=== PATIENT | male | born 1980 | race Caucasian/White ===

== ENCOUNTER 2024-04-25 15:53 | Emergency (ER) | payer SELFPAY ==
[2024-04-25 15:58] VITALS: BP 166/97; PULSE 73; RESP 16; TEMP 36.7; O2SAT 100
--- NOTE | 2024-04-25 16:05 | PC.NURSE ---
Pt in [place] and is available for any questions. Pt verbalized that his health information can be shared with her.
--- NOTE | 2024-04-25 16:14 | PC.NURSE ---
Patient states last night he had thoughts of wanting to kill himself by taking a bunch of pills . patient states he takes medication to depression but doesnt think they have ever worked .
--- NOTE | 2024-04-25 16:16 | ED.PSYCH ---
HPI - Psych General Chief Complaint: Psychiatric Symptoms <Alejandra Romero PA-C - Last Filed: 04/25/24 18:43> Stated Complaint: mental health crisis <CLEO Edouard Last Filed: 04/25/24 18:43> Time Seen by Provider: 04/25/24 16:08 <Alejandra Romero PA-C - Last Filed: 04/25/24 18:43> History of Present Illness HPI Narrative: 43-year-old male with a reported history of depression presents to emergency department for feeling alone and depressed. Patient states for about a week his symptoms have progressively worsened. 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 His left for work this morning and he felt alone. He is supposed to be taking Wellbutrin but is unable to tell me if he has been taking this. He denies SI or HI. Denies drug use or alcohol use. Denies prior Admission to psychiatric hospital. <Alejandra Romero PA-C - Last Filed: 04/25/24 18:43> 43-year-old male with a reported history of depression presents to emergency department for feeling alone and depressed. Patient states for about a week his symptoms have progressively worsened. 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 His left for work this morning and he felt alone. He is supposed to be taking Wellbutrin but is unable to tell me if he has been taking this. He denies SI or HI. Denies drug use or alcohol use. Denies prior Admission to psychiatric hospital. <Reyna Murillo, RUBI - Last Filed: 04/25/24 22:07> Related Data Allergies/Adverse Reactions: Allergies Allergy/AdvReac Type Severity Reaction Status Date / Time No Known Allergies Allergy Verified 04/25/24 16:47 <CLEO Edouard Last Filed: 04/25/24 18:43> Review of Systems Review of Systems: All systems reviewed & are unremarkable except as noted in HPI and below <Alejandra Romero PA-C - Last Filed: 04/25/24 18:43> [facility] Social History Social History: Social History Substance use type: does not use <Alejandra Romero PA-C - Last Filed: 04/25/24 18:43> Exam Narrative: GENERAL: Well-appearing, well-nourished, and in no acute distress. HEAD: Normocephalic, atraumatic. EYES: PERRLA and EOMI. ENT: Nares clear, no rhinorrhea or epistaxis. Mucous membranes moist. NECK: Supple. CHEST: Clear to auscultation. No respiratory distress. HEART: Regular rate and rhythm. No murmur heard. Normal peripheral pulses. EXTREMITIES: Normal range of motion. No edema. SKIN: Warm, dry, no rash. NEURO: No focal deficits. Alert and oriented x3 PSYCH: Withdrawn, depressed. Denies SI or HI. Cooperative. Flat affect. <Alejandra Romero PA-C - Last Filed: 04/25/24 18:43> Course Vital Signs Vital signs: Vital Signs Temperature 36.7 C 04/25/24 15:58 Pulse Rate 73 04/25/24 15:58 Respiratory Rate 16 04/25/24 15:58 Blood Pressure 166/97 H 04/25/24 15:58 Pulse Oximetry 100 04/25/24 15:58 Oxygen Delivery Room Air 04/25/24 15:58 Temperature 36.7 C 04/25/24 15:58 Pulse Rate 73 04/25/24 15:58 Respiratory Rate 16 04/25/24 15:58 Blood Pressure 166/97 H 04/25/24 15:58 Pulse Oximetry 100 04/25/24 15:58 Oxygen Delivery Room Air 04/25/24 15:58 <Alejandra Romero PA-C - Last Filed: 04/25/24 18:43> Vital Signs Temperature 36.7 C 04/25/24 15:58 Pulse Rate 73 04/25/24 15:58 Respiratory Rate 16 04/25/24 15:58 Blood Pressure 166/97 H 04/25/24 15:58 Pulse Oximetry 100 04/25/24 15:58 Oxygen Delivery Room Air 04/25/24 15:58 Temperature 36.7 C 04/25/24 15:58 Pulse Rate 73 04/25/24 15:58 Respiratory Rate 16 04/25/24 15:58 Blood Pressure 166/97 H 04/25/24 15:58 Pulse Oximetry 100 04/25/24 15:58 Oxygen Delivery Room Air 04/25/24 15:58 <Reyna Murillo, [employer] - Last Filed: 04/25/24 22:07> MDM - Psych MDM Narrative Medical decision making
[2024-04-25 16:40] LABS: Eosinophils Absolute Auto 0.1 K/mm3 (0-0.3); Eosinophils Percent Auto 1.2 % (0-4.4); Hemoglobin 15.7 g/dL (14.0-18.0); Immature Granulocyte Absolute 0.01 K/mm3 (0.00-0.031); Immature Granulocyte Percent A 0.1 % (0-0.5); Lymphocytes Absolute Auto 2.27 K/mm3 (0.9-3.2); Mean Corpuscular HGB Conc 33.4 g/dl (32-36); Mean Corpuscular Hemoglobin 30.7 pg (26-34); Mean Corpuscular Volume 91.8 fl (80-100); Mean Platelet Volume 10.3 fl (7.4-10.4); Monocytes Absolute Auto 0.5 K/mm3 (0.1-0.6); Monocytes Percent Auto 6.7 % (2.6-8.5); Neutrophils Absolute Auto 4.7 K/mm3 (1.3-6.7); Platelet Count Result 303 k/mm3 (150-375); Red Blood Count 5.12 M/mm3 (4.6-6.20); Red Cell Distribution Width 13.4 % (11.5-14.5); White Blood Count 7.6 K/mm3 (4.5-10.0)
[2024-04-25 16:50] LABS: Alanine Aminotransferase 35 U/L (6-50); Albumin Level 4.6 g/dL (3.5-5.1); Alkaline Phosphatase 93 U/L (38-126); Anion Gap 9 mmol/L (4-12); Aspartate Amino Transferase 30 U/L (17-59); Bilirubin,Total 0.6 mg/dL (0.2-1.3); Blood Urea Nitrogen 15 mg/dL (9-20); Calcium 9.4 mg/dL (8.4-10.2); Carbon Dioxide 27 mmol/L (22-30); Chloride 107 mmol/L (98-107); Estimated Glomerular Filt Rate > 60; Ethanol < 10 mg/dL (<10); Glucose 93 mg/dL (65-110); Potassium 3.5 mmol/L (3.4-5.0); Sodium 143 mmol/L (137-145)
[2024-04-25] MEDS: hydrOXYzine HCL 25 MG TABLET PO (16:57)
--- NOTE | 2024-04-25 16:57 | PC.NURSE ---
Patient's presents to nurses station to state she thinks patient is having a panic attack. this RN went to check on patient and he was tearful and crying, but in no distress. provider aware and order for medication placed
[2024-04-25 17:25] LABS: SARS-CoV-2 RNA PCR Negative (Negative)
[2024-04-25 18:28] LABS: Add Urine Microscopic? YES; Appearance Urine Clear (Clear); Bacteria Urine None Seen /hpf; Bilirubin Urine Negative (Negative); Blood Urine Negative (Negative); Color Urine Dark Yellow (Yellow); Glucose Urine UA 3+ mg/dL (Negative); Ketones Urine 3+ mg/dL (Negative); Leukocyte Esterase Ur Negative LEU/UL (Negative); Need Manual Microscopic Reviewed; Nitrate Urine Negative (Negative); Non Pathogenic Casts 0-2; Protein Urine 1+ mg/dL (Negative); RBC Urine 0-2 /hpf (0-2); Specific Grav Ur > 1.045 (1.001-1.035); Squamous Epithelial Cell Urine None Seen /hpf (Few); WBC Urine 0-5 /hpf (0-3); pH Urine 6.5 (5.0-9.0)
[2024-04-25 19:34] LABS: Amphetamine Screen Urine Negative (Negative); Barbiturate Screen Urine Negative (Negative); Benzodiazepines Screen Urine Negative (Negative); Cannabinoid Screen Urine Negative (Negative); Cocaine Screen Urine Negative (Negative); Methadone Screen Urine Negative (Negative); Opiate Screen Urine Negative (Negative); Phencyclidine Screen Urine Negative (Negative)
[2024-04-25 22:13] VITALS: BP 146/80; PULSE 74; RESP 15; TEMP 36.6; O2SAT 98
== END 2024-04-25 22:13 | disposition home or self-care (01) ==
PROVIDERS: Physician Assistant; Emergency Provider Registered Nurse
DX: F32.A Depression, unspecified (principal); Z11.52 Encounter for screening for COVID-19
CPT/HCPCS: 36415; 80053; 80307; 81001; 84443; 85025; 87635; 99284; A9270

== ENCOUNTER 2025-06-04 00:55 | Day surgery (SDC) | payer BC, SELFPAY ==
[2025-05-22 13:38] VITALS: BMI 33.7
--- OUTSIDE RECORDS SUMMARY | 2025-06-04 00:58 | XMS_ITS | Clinical Summary ---
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 Medications metFORMIN XR (GLUCOPHAGE XR) 500 mg 24 hr tablet Take 2 tablets (1,000 mg total) by mouth 2 (two) times a day with meals 5 Active gabapentin (NEURONTIN) 100 mg capsule Take 1 capsule (100 mg total) by mouth 2 (two) times a day 5 Active Jardiance 25 mg tablet Take 1 tablet (25 mg total) by mouth daily 5 Active dilTIAZem SR (CARDIZEM SR) 120 mg 12 hr capsule Take 1 capsule (120 mg total) by mouth 2 (two) times a day 5 Active atorvastatin (LIPITOR) 80 mg tablet Take 1 tablet (80 mg total) by mouth daily 5 Active busPIRone (BUSPAR) 5 mg tablet Take 1 tablet (5 mg total) by mouth 3 (three) times a day 5 Active ketoconazole (NIZORAL) 2 % shampoo Apply 1 Application topically 2 (two) times a week Apply to damp skin, lather, leave on 5 minutes, and rinse Active lisinopril-hydr oCHLOROthiazide (ZESTORETIC) 20-12.5 mg per tabletIndicatio ns:hypertension Take 2 tablets by mouth daily Active aspirin 81 mg enteric coated tablet Take 1 tablet (81 mg total) by mouth daily Active Active Problems Problem Noted Date Diagnosed Date Visual disturbance 04/09/2025 Stroke-like symptoms 04/08/2025 Family history of sudden cardiac Cardiomegaly 11/23/2024 Other chest pain 11/23/2024 Encounters Date Type Department Care Team Description 05/14/2025 Telephone [facility] Medicine Ophthalmology [facility] [id number] Igor Decker, OD New pt scheduled 04/08/2025 6:46 PM CDT - 04/09/2025 2:09 [place] [address] Sd Montiel MD Sada, MD Demond Dalton, Bobby Chopra MD Stroke-like symptoms (Primary Dx); Visual disturbance [H53.9] Discharge Disposition: Discharge to home or self care from Last 3 Months Family History Medical History Relation Name Comments Dementia Father Stroke Maternal Grandfather Heart attack Mother Relation Name Status Comments Father Alive Maternal Grandfather Mother Social History Tobacco Use Types Packs/Day Years Used Date Smoking Tobacco: Never Smokeless Tobacco: Never Tobacco Cessation:Counseling Given: No Personal Safety Answer Date Recorded Have you ever been in or are you currently in a harmful physical or emotional relationship or is someone making you feel afraid or unsafe? Denies 04/08/2025 Sex and Gender Information Value Date Recorded Sex Assigned at Not on file Legal Sex Male 3:56 PM CDT Gender Identity Not on file Sexual Orientation Not on file Last Filed Vital Signs Vital Sign Reading Time Taken Comments Blood Pressure 138/87 04/09/2025 11:45 AM CDT Pulse 96 04/09/2025 11:45 AM CDT Temperature 36.4 C (97.5 F) 04/09/2025 11:45 AM CDT Respiratory Rate 16 04/09/2025 11:45 AM CDT Oxygen Saturation 95% 04/09/2025 11:45 AM CDT Inhaled Oxygen Concentration - - Weight 109 kg (240 lb 3.2 oz) 04/08/2025 9:34 PM CDT Height 180 cm (5' 10.87) 04/08/2025 9:34 PM CDT Body Mass Index 33.63 04/08/2025 9:34 PM CDT Plan of Treatment Health Maintenance Due Date Last Done Comments Colon Cancer Screening-Colonoscopy 1980 Depression Screening 1980 Hepatitis C Screening 1980 Varicella Vaccines (1 of 2 - 13+ 2-dose series) 09/28/1992 Hepatitis B Screening 09/28/1997 Regular Well Visit/Exam 18-64 09/28/1997 HPV Vaccines (1 - 3-dose SCDM series) 09/28/2006 Covid-19 Vaccine ( season) 2025 08/16/2024, 06/20/2023, 05/02/2022, Additional history exists Influenza Vaccine (#1) 2025 , 05/17/2023, 05/02/2022, Additional history exists DTaP/Tdap/Td Vaccine (3 - Td or Tdap) 08/04/2033 08/04/2023, 08/01/2013 Pneumococcal vaccine <65 Aged Out No longer eligible based on patient's age to complete this topic Procedures Procedure Name Priority Date/Time Associated Diagnosis Comments POCT GLUCOSE DEVICE Routine 04/09/2025 1 1:52 AM CDT US CAROTIDS DUPLEX BILATERAL IP Routine 04/09/2025 11:21 AM CDT TRANSTHORACIC ECHO (TTE) COMPLETE W DOPPLER/CF WO CONTRAST Routine 04/09/2025 10:40 AM CDT POCT GLUCOSE DEVICE Routine 04/09/2025 7 :55 AM CDT EGFR Routine 04/09/2025 5:04 AM CDT T4, FREE Routine 04/09/2025 5:04 AM CDT THYROID FUNCTION CASCADE Routine 04/09/2025 5:04 AM CDT HEMOGLOBIN A1C Routine 04/09/2025 5:04 AM CDT CBC WITHOUT DIFFERENTIAL Routine 04/09/2025 5:04 AM CDT BASIC METABOLIC PANEL Routine 04/09/2025 5:04 AM CDT LIPID PANEL Routine 04/08/2025 10:08 PM CDT POCT GLUCOSE DEVICE Routine 04/08/2025 9 :37 PM CDT MRI BRAIN WO CONTRAST ED 04/08/2025 9:10 PM CDT SEPSIS LACTATE WITH REFLEX Timed 04/08/2025 8:16 PM CDT TROPONIN T HIGH-SENSITIVITY 6-HOUR Timed 04/08/2025 8:16 PM CDT TROPONIN T HIGH-SENSITIVITY 2-HOUR Timed 04/08/2025 4:14 PM CDT CTA HEAD NECK W WO CONTRAST ED 04/08/2025 3:58 PM CDT ECG 12-LEAD STAT 04/08/2025 2:26 PM CDT URINALYSIS AND REFLEX TO MICROSCOPIC AND CULTURE STAT 04/08/2025 2:20 PM CDT EGFR STAT 04/08/2025 2:18 PM CDT DIFFERENTIAL AUTO STAT 04/08/2025 2:1 8 PM CDT MAGNESIUM STAT 04/08/2025 2:18 PM CDT APTT STAT 04/08/2025 2:18 PM CDT PROTIME-INR Routine 04/08/2025 2:18 PM CDT SEPSIS LACTATE WITH REFLEX STAT 04/08/2025 2:18 PM CDT TROPONIN T HIGH-SENSITIVITY SERIES (BASELINE, 2HR, 4HR, 6HR) STAT 04/08/2025 2:18 PM CDT COMPREHENSIVE METABOLIC PANEL STAT 04/08/2025 2:18 PM CDT CBC WITH AUTO DIFFERENTIAL STAT 04/08/2025 2:18 PM CDT from Last 3 Months Results * POCT glucose (04/09/2025 11:52 AM CDT) Glucose, POC 151 70 - 199 mg/dL Glucose comment 1 RN/MD Notified CARLOS Blood 04/09/2025 11:5 2 AM CDT 04/09/2025 11:52 AM CDT us Bobby Lagos MD LAB POCT ORDERABLES - DEVICE Final Result CARLOS [address] [facility] [place] [address] * US Carotids Duplex Bilateral (04/09/2025 11:21 AM CDT) Anatomical Region Laterality Modality Vascular Bilateral Ultrasound 04/09/2025 10:4 2 AM CDT Narrative 04/11/2025 9:35 AM CDT Carotid Duplex Ultrasound Report Patient Name: KHOI GOLDBERG : 1980 (44y 6m) Study Date: 04/09/2025 10:42:56 AM Gender: M Clinical Trial Assistant: ESPERANZA Davenport Location: [id number] Ref Provider: CASA LERNER Quality: Adequate Order Provider: CASA LERNER PROCEDURES: Carotid Report: Carotid duplex examination of the extracranial arteries was performed using 2D, color and spectral Doppler. Blood Pressure: Right: 134/79 mmHg. Left: 141/85 mmHg. INDICATIONS: Syncope and Collapse. HISTORY: HTN, HLD, and DM. COMPARISONS: No prior exams. MEASUREMENTS: Right Value Left Value RT Prox CCA PSV 132 cm/sec LT Prox CCA PSV 112 cm/sec RT Prox CCA EDV 21 cm/sec LT Prox CCA EDV 27 cm/sec RT Distal CCA PSV 111 cm/sec LT Distal CCA PSV 113 cm/sec RT Distal CCA EDV 32 cm/sec LT Distal CCA EDV 36 cm/sec RT Prox ICA PSV 110 cm/sec LT Prox ICA PSV 114 cm/sec RT Prox ICA EDV 32 cm/sec LT Prox ICA EDV 36 cm/sec RT Mid ICA PSV 78 cm/sec LT Mid ICA PSV 55 cm/sec RT Mid ICA EDV 29 cm/sec LT Mid ICA EDV 21 cm/sec RT Distal ICA PSV 84 cm/sec LT Distal ICA PSV 59 cm/sec RT Distal ICA EDV 32 cm/sec LT Distal ICA EDV 24 cm/sec RT ECA Prx PSV 93 cm/sec LT ECA Prx PSV 132 cm/sec Rt Vert PSV 62 cm/sec Lt Vert PSV 75 cm/sec FINDINGS: Rt Common Carotid Artery: Duplex imaging of the right common carotid artery is within normal limits without evidence of atherosclerotic disease. Rt Internal Carotid Artery: Duplex imaging of the right internal carotid artery is within normal limits without evidence of atherosclerotic disease. Rt External Carotid Artery: The right external carotid artery is patent without evidence of atherosclerotic plaque. Rt Vertebral Artery: The right vertebral artery is patent with antegrade flow. Lt Common Carotid Artery: Duplex imaging of the left common carotid artery is within normal limits without evidence of atherosclerotic disease. Lt Internal Carotid Artery: Duplex imaging of the left internal carotid artery is within normal limits without evidence of atherosclerotic disease. Lt External Carotid Artery: The left external carotid artery is patent without evidence of atherosclerotic plaque. Lt Vertebral Artery: The left vertebral artery is patent with antegrade flow. Comments: Multiple swollen lymph nodes visualized bilaterally. CONCLUSIONS: 1. No evidence of hemodynamically significant disease of the bilateral extracranial carotid system. 2. Normal, antegrade flow is noted in bilateral vertebral arteries. ATTESTATION: I have reviewed and interpreted the pertinent images and measurements of this study. I attest to the conclusions in the final report that is provided above. Electronically Signed By: Steve Shaffer MD 04/11/2025 8:34:39 AM CDT Procedure Note Steve Shaffer MD - 04/11/2025 Carotid Duplex Ultrasound Report Patient Name: KHOI GOLDBERG : 1980 (44y 6m) Study Date: 04/09/2025 10:42:56 AM Gender: M Clinical Trial Assistant: ESPERANZA Davenport Location: [id number] Ref Provider: CASA LERNER Quality: Adequate Order Provider: CASA LERNER PROCEDURES: Carotid Report: Carotid duplex examination of the extracranial arterieswas performed using 2D, color and spectral Doppler. Blood Pressure: Right: 134/79 mmHg. Left: 141/85 mmHg. INDICATIONS: Syncope and Collapse. HISTORY: HTN, HLD, and DM. COMPARISONS: No prior exams. MEASUREMENTS: Right Value Left Value RT Prox CCA PSV 132 cm/sec LT Prox CCA PSV 112 cm/sec RT Prox CCA EDV 21 cm/sec LT Prox CCA EDV 27 cm/sec RT Distal CCA PSV 111 cm/sec LT Distal CCA PSV 113 cm/sec RT Distal CCA EDV 32 cm/sec LT Distal CCA EDV 36 cm/sec RT Prox ICA PSV 110 cm/sec LT Prox ICA PSV 114 cm/sec RT Prox ICA EDV 32 cm/sec LT Prox ICA EDV 36 cm/sec RT Mid ICA PSV 78 cm/sec LT Mid ICA PSV 55 cm/sec RT Mid ICA EDV 29 cm/sec LT Mid ICA EDV 21 cm/sec RT Distal ICA PSV 84 cm/sec LT Distal ICA PSV 59 cm/sec RT Distal ICA EDV 32 cm/sec LT Distal ICA EDV 24 cm/sec RT ECA Prx PSV 93 cm/sec LT ECA Prx PSV 132 cm/sec Rt Vert PSV 62 cm/sec Lt Vert PSV 75 cm/sec FINDINGS: Rt Common Carotid Artery: Duplex imaging of the right common carotidartery is within normal limits without evidence of atherosclerotic disease. Rt Internal Carotid Artery: Duplex imaging of the right internal carotidartery is within normal limits without evidence of atherosclerotic disease. Rt External Carotid Artery: The right external carotid artery is patentwithout evidence of atherosclerotic plaque. Rt Vertebral Artery: The right vertebral artery is patent with antegradeflow. Lt Common Carotid Artery: Duplex imaging of the left common carotid arteryis within normal limits without evidence of atherosclerotic disease. Lt Internal Carotid Artery: Duplex imaging of the left internal carotidartery is within normal limits without evidence of atherosclerotic disease. Lt External Carotid Artery: The left external carotid artery is patentwithout evidence of atherosclerotic plaque. Lt Vertebral Artery: The left vertebral artery is patent with antegradeflow. Comments: Multiple swollen lymph nodes visualized bilaterally. CONCLUSIONS: 1. No evidence of hemodynamically significant disease of the bilateralextracranial carotid system. 2. Normal, antegrade flow is noted in bilateral vertebral arteries. ATTESTATION: I have reviewed and interpreted the pertinent images and measurements ofthis study. I attest to the conclusions in the final report that is provided above. Electronically Signed By: Steve Shaffer MD 04/11/2025 8:34:39 AM CDT Casa Lerner MD IMG US PROCEDUR ES Final Result * TRANSTHORACIC ECHO (TTE) COMPLETE W DOPPLER/CF WO CONTRAST (04/09/2025 10:40 AM CDT) Estimated EF 50-55 % CONS SCIMAGE EF Mod BP 54 % CONS SCIMAGE Anatomical Region Laterality Modality Ultrasound 04/09/2025 10:0 5 AM CDT Narrative 04/10/2025 6:22 AM CDT Transthoracic Echocardiographic Report Patient Name: KHOI GOLDBERG : 1980 (44y 6m) Sex: M Study Date: 04/09/2025 10:05:34 AM Ht(Inch): 71 Wt(Lb): 239.99 BSA: 2.34 Clinical Trial Assistant: Carolina Covington RDCS Location: [place] [id number] Order Provider: CASA LERNER Heart Rate: 84 BMI: 33.47 BP: 125 / 82 Ref Provider: CASA LERNER PROCEDURES: Echocardiographic Report: ([id number]) Transthoracic complete echo, 2D, spectral and tissue Doppler, color flow Doppler, M-mode. Additional Procedures: Agitated saline bubble study. Technically difficult study due to: Technically difficult study due to Body Habitus. INDICATIONS: Stroke and Transient ischemic attack. FINDINGS: Left Ventricle: Normal left ventricular cavity size. Normal Left ventricular wall thickness. Normal left ventricular systolic function. The Ejection Fraction (Zuniga's) is measured at 54 %. The Ejection Fraction is visually estimated to be 50-55 %. Diastolic Function E to E' ratio is 8-15 which is in the indeterminate zone and left ventricular diastolic parameters are consistent with Grade I diastolic dysfunction (normal LA pressure). Right Ventricle: Normal right ventricular size. Normal right ventricular systolic function. Left Atrium: The left atrium is normal in size. Right Atrium: The right atrium is normal in size. Atrial Septum: No shunt by color Doppler. Saline contrast study technically difficult with poor visualization of bubbles. Mitral Valve: Normal mitral valve leaflet structure. There is trace mitral valve regurgitation. No mitral valve stenosis. Aortic Valve: Aortic valve not well visualized due to poor echo windows. Difficult to detemine number of Aortic Valve leaflets. No aortic regurgitation seen. No aortic valve stenosis. The mean transaortic gradient is 4 mmHg. The aortic valve area by the continuity equation (using Peak Dat) is 2.6 cm2. Tricuspid Valve: The tricuspid valve demonstrates normal leaflet structure. There is trace tricuspid regurgitation. PASP cannot be evaluated due to lack of adequate TR jet. No tricuspid valve stenosis. Pulmonic Valve: Pulmonic Valve not well visualized due to poor echo windows. There is trace pulmonic regurgitation. No stenosis present. Pericardium: Normal pericardium without evidence of pericardial effusion. No pericardial effusion noted. Aorta: Normal aortic root. The aortic Sinus is normal in size. IVC: IVC Not well visualized due to poor echo windows. CONCLUSIONS: 1. Normal left ventricular cavity size. Normal Left ventricular wall thickness. Normal left ventricular systolic function. The Ejection Fraction (Zuniga's) is measured at 54 %. The Ejection Fraction is visually estimated to be 50-55 %. Diastolic Function E to E' ratio is 8-15 which is in the indeterminate zone and left ventricular diastolic parameters are consistent with Grade I diastolic dysfunction (normal LA pressure). 2. No shunt by color Doppler. Saline contrast study technically difficult with poor visualization of bubbles. 3. No prior echo available for comparison. MEASUREMENTS: 2D/MM Value Range Doppler Value LVIDd 2D 5.32 cm [ 3.50 - 5.70 ] AV Peak Dat 1.36 m/s LVIDs 2D 3.89 cm [ 3.10 - 4.60 ] AV Peak PG 7.40 mmHg IVSd 2D 0.96 cm [ 0.60 - 1.20 ] AV Mean PG 4.00 mmHg LVPWd 2D 0.96 cm [ 0.60 - 1.10 ] AV VTI 26.20 cm LV Thickness Ratio 1.00 LVOT Peak Dat 1.02 m/s LV Mass 2D 195.89 g LVOT Peak PG 4.16 mmHg LV Mass Index 2D 83.89 g/m2 LVOT Mean PG 2.00 mmHg RWT 0.36 LVOT VTI 17.90 cm EDV Mod BP 75.60 ml [ 62.00 - 150.00 ] LVOT Diam 2.10 cm LV EDV Index 32.37 ml/m2 SV LVOT 62.00 cm3 ESV Mod BP 34.50 ml [ 21.00 - 61.00 ] INEZ VTI 2.37 cm2 EF Mod BP 54 % [ 52 - 72 ] INEZ Vmax 2.60 cm2 Visually Estimated EF 50-55 % LVOT/AV VTI 0.68 - Dimensionless index (DVI) LA Dimension MM 3.80 cm [ 1.90 - 4.00 ] MV E Peak Dat 0.81 m/s TAPSE 2.54 cm [ 1.71 - 5.00 ] MV A Peak Dat 0.82 m/s MV E/A 1.00 ratio MV Decel Time 190.00 msec Med E` Dat 0.08 m/s Lat E` Dat 0.09 m/s Average E/E` 952.94 TV Peak Dat 0.56 m/s TV Peak PG 1.25 mmHg RV S` 13.40 cm/sec PV Peak Dat 0.88 m/s PV Peak PG 3.10 mmHg - ATTESTATION: I have reviewed and interpreted the pertinent images and measurements of this study. I attest to the conclusions in the final report that is provided above. DISCLAIMER: The study images and the final report will be retained in the patient chart by the Echo Laboratory for the legally required time period. This chart constitutes the legal record of any testing performed. Electronically Signed By: Justin Egan MD 04/10/2025 6:22:16 AM CDT Procedure Note Justin Egan MD - 04/10/2025 Transthoracic Echocardiographic Report Patient Name: KHOI GOLDBERG : 1980 (44y 6m) Sex: M Study Date: 04/09/2025 10:05:34 AM Ht(Inch): 71 Wt(Lb): 239.99 BSA: 2.34 Clinical Trial Assistant: Carolina Covington RDCS Location: [id number] Order Provider:CASA LERNER Heart Rate: 84 BMI: 33.47 BP: 125 / 82 Ref Provider:CASA LERNER PROCEDURES: Echocardiographic Report: ([id number]) Transthoracic complete echo, 2D,spectral and tissue Doppler, color flow Doppler, M-mode. Additional Procedures: Agitated saline bubble study. Technically difficult study due to: Technically difficult study due toBody Habitus. INDICATIONS: Stroke and Transient ischemic attack. FINDINGS: Left Ventricle: Normal left ventricular cavity size. Normal Leftventricular wall thickness. Normal left ventricular systolic function. The EjectionFraction (Zuniga's) is measured at 54 %. The Ejection Fraction is visually estimated to be50-55 %. Diastolic Function E to E' ratio is 8-15 which is in the indeterminate zone and leftventricular diastolic parameters are consistent with Grade I diastolic dysfunction(normal LA pressure). Right Ventricle: Normal right ventricular size. Normal right ventricularsystolic function. Left Atrium: The left atrium is normal in size. Right Atrium: The right atrium is normal in size. Atrial Septum: No shunt by color Doppler. Saline contrast studytechnically difficult with poor visualization of bubbles. Mitral Valve: Normal mitral valve leaflet structure. There is trace mitralvalve regurgitation. No mitral valve stenosis. Aortic Valve: Aortic valve not well visualized due to poor echo windows.Difficult to detemine number of Aortic Valve leaflets. No aortic regurgitation seen. Noaortic valve stenosis. The mean transaortic gradient is 4 mmHg. The aortic valve areaby the continuity equation (using Peak Dat) is 2.6 cm2. Tricuspid Valve: The tricuspid valve demonstrates normal leafletstructure. There is trace tricuspid regurgitation. PASP cannot be evaluated due to lack ofadequate TR jet. No tricuspid valve stenosis. Pulmonic Valve: Pulmonic Valve not well visualized due to poor echowindows. There is trace pulmonic regurgitation. No stenosis present. Pericardium: Normal pericardium without evidence of pericardial effusion.No pericardial effusion noted. Aorta: Normal aortic root. The aortic Sinus is normal in size. IVC: IVC Not well visualized due to poor echo windows. CONCLUSIONS: 1. Normal left ventricular cavity size. Normal Left ventricular wallthickness. Normal left ventricular systolic function. The Ejection Fraction (Zuniga's) ismeasured at 54 %. The Ejection Fraction is visually estimated to be 50-55 %. DiastolicFunction E to E' ratio is 8-15 which is in the indeterminate zone and left ventriculardiastolic parameters are consistent with Grade I diastolic dysfunction (normal LApressure). 2. No shunt by color Doppler. Saline contrast study technically difficultwith poor visualization of bubbles. 3. No prior echo available for comparison. MEASUREMENTS: 2D/MM Value Range DopplerValue LVIDd 2D 5.32 cm [ 3.50 - 5.70 ] AV Peak Vel1.36 m/s LVIDs 2D 3.89 cm [ 3.10 - 4.60 ] AV Peak PG7.40 mmHg IVSd 2D 0.96 cm [ 0.60 - 1.20 ] AV Mean PG4.00 mmHg LVPWd 2D 0.96 cm [ 0.60 - 1.10 ] AV VTI26.20 cm LV Thickness Ratio 1.00 LVOT PeakVel 1.02 m/s LV Mass 2D 195.89 g LVOT Peak PG4.16 mmHg LV Mass Index 2D 83.89 g/m2 LVOT Mean PG2.00 mmHg RWT 0.36 LVOT VTI17.90 cm EDV Mod BP 75.60 ml [ 62.00 - 150.00 ] LVOT Diam2.10 cm LV EDV Index 32.37 ml/m2 SV LVOT62.00 cm3 ESV Mod BP 34.50 ml [ 21.00 - 61.00 ] INEZ VTI2.37 cm2 EF Mod BP 54 % [ 52 - 72 ] INEZ Vmax2.60 cm2 Visually Estimated EF 50-55 % LVOT/AV VTI0.68 - Dimensionless index (DVI) LA Dimension MM 3.80 cm [ 1.90 - 4.00 ] MV E PeakVel 0.81 m/s TAPSE 2.54 cm [ 1.71 - 5.00 ] MV A PeakVel 0.82 m/s MV E/A 1.00 ratio MV Decel Time 190.00 msec Med E` Dat 0.08 m/s Lat E` Dat 0.09 m/s Average E/E` 952.94 TV Peak Dat 0.56 m/s TV Peak PG 1.25 mmHg RV S` 13.40 cm/sec PV Peak Dat 0.88 m/s PV Peak PG 3.10 mmHg - ATTESTATION: I have reviewed and interpreted the pertinent images and measurements ofthis study. I attest to the conclusions in the final report that is provided above. DISCLAIMER: The study images and the final report will be retained in the patientchart by the Echo Laboratory for the legally required time period. This chart constitutesthe legal record of any testing performed. Electronically Signed By: Justin Egan MD 04/10/2025 6:22:16 AM CDT Casa Lerner MD CV ECHO PROCEDU RES Final Result * POCT glucose (04/09/2025 7:55 AM CDT) Glucose, POC 101 70 - 199 mg/dL Glucose comment 1 RN/ Notified CARLOS Blood 04/09/2025 7:55 AM CDT 04/09/2025 7:55 AM CDT us Bobby Lagos MD LAB POCT ORDERABLES - DEVICE Final Result Performing Organization Address [facility] Co de Phone Number CARLOS [address] [place] [address] * eGFR (04/09/2025 5:04 AM CDT) eGFR 79 >=60 mL/min/1. 73 m2 Comment: Interpretive Data Reference Interval Normal >/= 90 mL/min/1.73m2 Mildly decreased* 60 - 89 mL/min/1.73m2 Mildly to moderately decreased 45 - 59 mL/min/1.73m2 Moderately to severely decreased 30 - 44 mL/min/1.73m2 Severely decreased 15 - 29 mL/min/1.73m2 Kidney Failure < 15 mL/min/1.73m2 *Relative to young adult level Estimated glomerular filtration rate is determined by the 2020 CKD-EPI equation recommended by the National Kid[employer] (A Unifying Approach to GFR Estimation: Recommendations of the NKF-ASK Task Force on Reassessing the Inclusion of Race in Diagnosing Kidney Disease, JASN 2020). The CKD-EPI equation should not be used for patients with unstable renal function and has not been validated in children and those over 70. Current interpretive data was last reviewed 2021. Blood 04/09/2025 5:04 AM CDT 04/09/2025 5:36 AM CDT us Casa Lerner MD LAB BLOOD ORDER OLENA Final Result Performing Organization Address [facility]/ZIP Co de Phone Number BRITANY[address] [place] [address] * (ABNORMAL) Thyroid Function [place] (04/09/2025 5:04 AM CDT) TSH 4.50(H) 0.30 - 4.20 mcIUnit/mL Blood 04/09/2025 5:04 AM CDT 04/09/2025 5:36 AM CDT Casa Lerner MD LAB BLOOD ORDER OLENA Final Result Performing Organization Address City/[facility] Co de Phone Number CARLOS [address] [place] [address] * (ABNORMAL) CBC without differential (04/09/2025 5:04 AM CDT) Pathologist [facility] [place] WBC 10.18(H) 3.80 - 9.90 K/cumm Hgb 14.9 13.0 - 17.5 g/dL [facility] Hct 45.1 38.9 - 50.3 % [facility] Plt 290 150 - 400 K/cumm [facility] MPV 11.1 9.1 - 12.3 fL [facility] RBC 4.85 4.30 - 5.80 M/cumm [facility] MCV 93.0 81.3 - 96.4 fL [facility] MCH 30.7 27.1 - 33.3 pg [facility] MCHC 33.0 32.3 - 35.7 g/dL [facility] RDW CV 13.0 11.1 - 14.9 % [facility] RDW SD 44.2 35.7 - 48.1 fL [facility] NRBC abs 0.00 0.00 - 0.01 K/cumm [facility] Blood 04/09/2025 5:04 AM CDT 04/09/2025 5:36 AM CDT Casa Lerner MD LAB BLOOD ORDER OLENA Final Result Performing Organization Address City/[facility]/ZIP Co de Phone Number CARLOS [address] [place] [address] * T4, free (04/09/2025 5:04 AM CDT) Pathologist [facility] [place] Free T4 1.01 0.90 - 1.70 ng/dL Blood 04/09/2025 5:04 AM CDT 04/09/2025 5:36 AM CDT Narrative [facility] - 04/09/2025 7:00 AM CDT This test was reflexed from a TSH result. Casa Lerner MD LAB BLOOD ORDER OLENA Final Result Performing Organization Address [facility] de Phone Number CARLOS [address] [address] * Hemoglobin A1c (04/09/2025 5:04 AM CDT) [facility] Hgb A1C 5.5 4.0 - 5.6 % Estimated Average Glucose 111 mg/dL [facility] Comment: The ADA recommends reporting an estimated Average Glucose (eAG) with all Hemoglobin A1c results using the equation derived from a study of 507 normal and diabetic adults. Minority populations were underrepresented and children were not included. (Diabetes Care 31:3975-7787, 2008). The eAG is not equivalent to a fasting glucose. Blood 04/09/2025 5:04 AM CDT 04/09/2025 5:36 AM CDT Casa Lerner MD LAB BLOOD ORDER OLENA Final Result Performing Organization Address [facility] de Phone Number [address] [address] * (ABNORMAL) Basic metabolic panel (04/09/2025 5:04 AM CDT) [facility] Sodium 142 135 - 145 mmol/L Potassium, pl 3.2(L) 3.3 - 4.9 mmol/L [facility] Comment:Hemolyzed; Potassium value may be falsely elevated by as much as 1.0 mmol/L. Suggest redraw and reanalysis. Chloride 106 97 - 110 mmol/L [facility] CO2 25 22 - 32 mmol/L [facility] Anion gap 11 2 - 15 mmol/L [facility] BUN 15 6 - 25 mg/dL [facility] Creatinine 1.16 0.80 - 1.30 mg/dL [facility] Glucose 101 70 - 199 mg/dL [facility] Comment: Interpretive Data Fasting glucose >/= 126 mg/dl is diagnostic for diabetes. Fasting is defined as no caloric intake for at least 8 hours. Fasting glucose between 100 mg/dl to 125 mg/dl is diagnostic of prediabetes. In a patient with classic symptoms of hyperglycemia or hyperglycemic crisis, a random glucose >/= 200 mg/dl is diagnostic for diabetes. In the absence of unequivocal hyperglycemia, results should be confirmed by repeat testing. The classification and Diagnosis of Diabetes Diabetes Care 2021; 46: S19-S40. Current interpretive data was last revised 2022. Calcium 9.2 8.5 - 10.3 mg/dL CARLOS BURCIAGA Blood 04/09/2025 5:04 AM CDT 04/09/2025 5:36 AM CDT Casa Lerner MD LAB BLOOD ORDER OLENA Final Result CARLOS BURCIAGA [address] [facility] [place] [address] * (ABNORMAL) Lipid panel (04/08/2025 10:08 PM CDT) Cholesterol 146 30 - 199 mg/dL Comment: Interpretive Data Ages < or = 19 years Acceptable: <170 mg/dL Borderline high: 170-199 mg/dL High: >or= 200 mg/dL Ages > or = 20 years Desirable: <200 mg/dL Borderline high: 200-239 mg/dL High: >or= 240 mg/dL Literature References: 1. Expert Panel on Integrated Guidelines for Cardiovascular Health and Risk Reduction in Children and Adolescents. Pediatrics 2011;128:S213 2. NCEP Expert Panel. Circulation 2004;110:227 Current Interpretive Data was last revised on 2018. Triglycerides 175(H) <=149 mg/dL CARLOS BURCIAGA Comment: Interpretive Data Ages < or = 9 years Acceptable: <75 mg/dL Borderline high: 75-99 mg/dL High: >or= 100 mg/dL Ages 10 to 20 years Acceptable: <90 mg/dL Borderline high: 90-129 mg/dL High: >or= 130 mg/dL Ages > or = 20 years Desirable: <150 mg/dL Borderline high: 150-199 mg/dL High: 200-499 mg/dL Very high: >or= 499 mg/dL Literature References: 1. Expert Panel on Integrated Guidelines for Cardiovascular Health and Risk Reduction in Children and Adolescents. Pediatrics 2011;128:S213 2. NCEP Expert Panel. Circulation 2004;110:227 Current Interpretive Data was last revised on 2018. HDL 37(L) >=40 mg/dL CARLOS Comment: Interpretive Data Ages < or = 19 years Acceptable: >45 mg/dL Borderline low: 40-45 mg/dL Low: <40 mg/dL Ages > or = 20 years Desirable: >or= 60 mg/dL Low: <40 mg/dL Literature References: 1. Expert Panel on Integrated Guidelines for Cardiovascular Health and Risk Reduction in Children and Adolescents. Pediatrics 2011;128:S213 2. NCEP Expert Panel. Circulation 2004;110:227 Current Interpretive Data was last revised on 2018. LDL, calculated 79 <=129 mg/dL CARLOS Comment: Interpretive Data Ages < or = 19 years Acceptable: <110 mg/dL Borderline high: 110-129 mg/dL High: >or= 130 mg/dL Ages > or = 20 years Optimal: <100 mg/dL Near optimal: 100-129 mg/dL Borderline high: 130-159 mg/dL High: >160 mg/dL Calculated using the Cash LDL-C estimating equation. This equation was implemented on 2024. Prior to this date LDL-C was estimated using the Friedewald equation. Literature References: 1. Expert Panel on Integrated Guidelines for Cardiovascular Health and Risk Reduction in Children and Adolescents. Pediatrics 2011;128:S213 2. NCEP Expert Panel. Circulation 2004;110:227 3. Cash Stuart al. MICHELLE Cardiol. 2019November 29;5(5):540-548. doi: [email or web address] Current Interpretive Data was last revised on 2024. Non-HDL Cholesterol 109 mg/dL CARLOS Comment: Interpretive Data Ages < or = 19 years Acceptable: <120 mg/dL Borderline high: 120-144 mg/dL High: >145 mg/dL Ages > or = 20 years When triglycerides are >200 mg/dL, Non-HDL cholesterol is a secondary target of therapy with treatment goals that are 30 mg/dL greater than the LDL cholesterol target. Literature References: 1. Expert Panel on Integrated Guidelines for Cardiovascular Health and Risk Reduction in Children and Adolescents. Pediatrics 2011;128:S213 2. NCEP Expert Panel. Circulation 2004;110:227 Current Interpretive Data was last revised on 2018. Chol/HDL ratio 4 CARLOS Blood 04/08/2025 10:0 8 PM CDT 04/08/2025 10:24 PM CDT Casa Lerner MD LAB BLOOD ORDER OLENA Final Result Performing Organization Address City/[facility] Co de Phone Number BRITANY[address] [place] [address] * POCT glucose (04/08/2025 9:37 PM CDT) Glucose, POC 123 70 - 199 mg/dL Glucose comment 1 RN/MD Notified CARLOS Blood 04/08/2025 9:37 PM CDT 04/08/2025 9:37 PM CDT Casa Lerner MD LAB POCT ORDERA BLES - DEVICE Final Result Performing Organization Address City/[facility] Co de Phone Number BRITANY[address] [place] [address] * MRI Brain WO Contrast (04/08/2025 9:10 PM CDT) Anatomical Region Laterality Modality Head and Neck N/A Magnetic Resonan ce 04/08/2025 9:26 PM CDT Narrative 04/08/2025 9:29 PM CDT EXAM DESCRIPTION: MRI BRAIN WO CONTRAST REASON FOR STUDY: Neuro deficit, acute, stroke suspected, tia Patient states that he lost vision for approximately 10 seconds this morning. Concern for stroke. TECHNIQUE: Multiplanar imaging includes non-contrasted T1, T2, FLAIR, and diffusion with ADC map sequences. Additional sequence(s) sensitive to blood products. Images stored on PACS. COMPARISON: CT a head and neck from 04/10/2025. FINDINGS: CEREBRUM: No hemorrhage, edema, or mass effect. No abnormality on blood sensitive gradient T2 weighted sequences is identified to indicate hemosiderin or other chronic blood breakdown product. WHITE MATTER: Normal. POSTERIOR FOSSA: Brainstem and cerebellum appear unremarkable. DIFFUSION IMAGING: No recent infarction. EXTRAAXIAL SPACES: No hemorrhage. No mass. BRAIN VOLUME: Within normal limits for age. PITUITARY: Unremarkable. VASCULATURE: No flow disturbance identified. ORBITS: No masses. Globes normal. PARANASAL SINUSES AND MASTOIDS: Well-aerated with no fluid levels. No mucosa thickening. OTHER: No other significant finding. IMPRESSION: No acute infarction or other acute intracranial findings. Essentially unremarkable MRI of the brain without contrast. THIS IS AN ELECTRONICALLY VERIFIED FINAL REPORT 04/08/2025 9:29 PM - Electronically signed by Beverly Jay M.D. LC T: Report ID: [id number] Reading Location: [place] [address] Procedure Note Deysi Jay MD - 04/08/2025 EXAM DESCRIPTION: MRI BRAIN WO CONTRAST REASON FOR STUDY: Neuro deficit, acute, stroke suspected, tia Patient states that he lost vision for approximately 10 seconds thismorning. Concern for stroke. TECHNIQUE: Multiplanar imaging includes non-contrasted T1, T2, FLAIR, and diffusion with ADC map sequences. Additional sequence(s) sensitive toblood products. Images stored on PACS. COMPARISON: CT a head and neck from 04/10/2025. FINDINGS: CEREBRUM: No hemorrhage, edema, or mass effect. Noabnormality on blood sensitive gradient T2 weighted sequences is identified toindicate hemosiderin or other chronic blood breakdown product. WHITE MATTER: Normal. POSTERIOR FOSSA: Brainstem and cerebellum appear unremarkable. DIFFUSION IMAGING: No recent infarction. EXTRAAXIAL SPACES: No hemorrhage. No mass. BRAIN VOLUME: Within normal limits for age. PITUITARY: Unremarkable. VASCULATURE: No flow disturbance identified. ORBITS: No masses. Globes normal. PARANASAL SINUSES AND MASTOIDS: Well-aerated with no fluid levels. [place]uc[place] thickening. OTHER: No other significant finding. IMPRESSION: No acute infarction or other acute intracranial findings. Essentially unremarkable MRI of the brain without contrast. THIS IS AN ELECTRONICALLY VERIFIED FINAL REPORT 04/08/2025 9:29 PM - Electronically signed by Beverly Jay M.D. T: Report ID: [id number] Reading Location: [id number] Sd Montiel MD IMG MRI PROCEDURES Teresa l Result * Troponin T high-sensitivity 6-hour (04/08/2025 8:16 PM CDT) Pathologist [facility] Trop T hs 7 <=22 ng/L Comment: Interpretive Data For further hscTnT resources including the diagnostic algorithm and an aid in interpretation, copy and paste this link: https://nrl.testcatalog.org/show/hsTrop Current Interpretive Data last revised 2020. Trop T hs delta -4 ng/L CARLOS Trop T hs interp Insignificant CARLOS Blood 04/08/2025 8:16 PM CDT 04/08/2025 8:18 PM CDT Elsi JARQUIN LAB BLOOD ORDERABLES Final R esult Performing Organization Address City/[facility] Co de Phone Number [address] [place] [address] * Sepsis Lactate w/ Reflex (04/08/2025 8:16 PM CDT) Pathologist [facility] Sepsis Lactate 1.3 0.7 - 2.0 mmol/L Blood 04/08/2025 8:16 PM CDT 04/08/2025 8:18 PM CDT Elsi JARQUIN LAB BLOOD ORDERABLES Final R esult Performing Organization Address City/[facility]/ZIP Co de Phone Number BRITANY[address] [place] [address] * Troponin T high-sensitivity 2-hour (04/08/2025 4:14 PM CDT) Trop T hs 10 <=22 ng/L Comment: Interpretive Data For further hscTnT resources including the diagnostic algorithm and an aid in interpretation, copy and paste this link: https://nrl.testcatalog.org/show/hsTrop Current Interpretive Data last revised 2020. Trop T hs delta -1 ng/L CARLOS BURCIAGA Trop T hs interp Insignificant CARLOS BURCIAGA Blood 04/08/2025 4:14 PM CDT 04/08/2025 4:16 PM CDT us Elsi JARQUIN LAB BLOOD ORDERABLES Final R esult CARLOS BURCIAGA [address] [facility] [place] [address] * CTA Head Neck W WO Contrast (04/08/2025 3:58 PM CDT) Anatomical Region Laterality Modality Head and Neck N/A Computed Tomogra phy 04/08/2025 4:53 PM CDT Narrative 04/08/2025 4:57 PM CDT EXAM DESCRIPTION: CTA HEAD NECK W WO CONTRAST REASON FOR STUDY: Vision loss, binocular Pt ambulatory to triage with c/o waking up at 0400 and being unable to see anything for 10 seconds. Pt saw eye doctor this morning and was cleared, pcp instructed to come to ED. No stroke, no surgery. TECHNIQUE: Axial images were first obtained through the brain without contrast. Axial dynamic scanning technique with dynamic contrast enhancement through the intracranial and extracranial carotid and vertebral arteries. Multiplanar reconstruction. All stenosis measurements are based on NASCET criteria. 3D MIP images rendered on scanning unit and reviewed at time of interpretation. Automated exposure control was used as a dose optimization technique for this examination. CONTRAST TYPE/DOSE: 100mL of IOVERSOL 350 MG IODINE/ML INTRAVENOUS SYRINGE injected via intravenous COMPARISON: None FINDINGS: BRAIN CEREBRUM: No hemorrhage, edema or mass effect. No recent infarct. Mild diffuse atrophy is noted. WHITE MATTER: Normal. POSTERIOR FOSSA: No masses. No hemorrhage. No evidence for acute infarction. EXTRA-AXIAL SPACES: No fluid collections. No masses. ORBITS: No significant abnormality. CALVARIUM: No fracture. SINUSES/MASTOIDS: No fluid or mucosal thickening. OTHER: No other significant abnormality. INTRACRANIAL VESSELS [place] STAR[place]: The anterior, middle, posterior cerebral arteries are all patent. No evidence of aneurysm or focal stenosis. POSTERIOR CIRCULATION: The distal vertebral arteries are patent as is the basilar artery. No aneurysm. BRAIN: No gross enhancing lesions as visualized. CAROTID CTA RIGHT CAROTIDS: No internal, external or common carotid stenosis. LEFT CAROTIDS: No internal, external or common carotid stenosis. LEFT VERTEBRAL: Patent. No significant stenosis. No dissection. RIGHT VERTEBRAL: Patent. No significant stenosis. No dissection. AORTIC ARCH: Normal three-vessel origin. Bilateral subclavian arteries are patent. No dissection. NECK SOFT TISSUE: No mass, adenopathy. No thyroid nodule greater than 1 cm. INCLUDED LUNGS: No acute abnormality. No worrisome nodules. OTHER: No other significant finding. IMPRESSION: BRAIN: No acute abnormalities. INTRACRANIAL CTA: Normal. CAROTID CTA: Normal CTA of the extra-cranial carotid and vertebral arteries. THIS IS AN ELECTRONICALLY VERIFIED FINAL REPORT 04/08/2025 4:57 PM - Electronically signed by Skip Roldan M.D. T: Report ID: [id number] Reading Location: [place] [address] Procedure Note Skip Roldan MD - 04/08/2025 EXAM DESCRIPTION: CTA HEAD NECK W WO CONTRAST REASON FOR STUDY: Vision loss, binocular Pt ambulatory to triage with c/o waking up at 0400 and being unable to see anything for 10 seconds. Pt saw eye doctor this morning and was cleared,pcp instructed to come to ED. No stroke, no surgery. TECHNIQUE: Axial images were first obtained through the brain without contrast. Axial dynamic scanning technique with dynamic contrast enhancement throughthe intracranial and extracranial carotid and vertebral arteries. Multiplanar reconstruction. All stenosis measurements are based on NASCET criteria. 3D MIP images rendered on scanning unit and reviewed at time of interpretation. Automated exposure control was used as a dose optimization technique forthis examination. CONTRAST TYPE/DOSE: 100mL of IOVERSOL 350 MG IODINE/ML INTRAVENOUSSYRINGE injected via intravenous COMPARISON: None FINDINGS: BRAIN CEREBRUM: No hemorrhage, edema or mass effect. No recent infarct. Mild diffuse atrophy is noted. WHITE MATTER: Normal. POSTERIOR FOSSA: No masses. No hemorrhage. No evidence for acuteinfarction. EXTRA-AXIAL SPACES: No fluid collections. No masses. ORBITS: No significant abnormality. CALVARIUM: No fracture. SINUSES/MASTOIDS: No fluid or mucosal thickening. OTHER: No other significant abnormality. INTRACRANIAL VESSELS [place] OF STARKS: The anterior, middle, posterior cerebral arteries areall patent. No evidence of aneurysm or focal stenosis. POSTERIOR CIRCULATION: The distal vertebral arteries are patent as isthe basilar artery. No aneurysm. BRAIN: No gross enhancing lesions as visualized. CAROTID CTA RIGHT CAROTIDS: No internal, external or common carotid stenosis. LEFT CAROTIDS: No internal, external or common carotid stenosis. LEFT VERTEBRAL: Patent. No significant stenosis. No dissection. RIGHT VERTEBRAL: Patent. No significant stenosis. No dissection. AORTIC ARCH: Normal three-vessel origin. Bilateral subclavian arteriesare patent. No dissection. NECK SOFT TISSUE: No mass, adenopathy. No thyroid nodule greater than 1cm. INCLUDED LUNGS: No acute abnormality. No worrisome nodules. OTHER: No other significant finding. IMPRESSION: BRAIN: No acute abnormalities. INTRACRANIAL CTA: Normal. CAROTID CTA: Normal CTA of the extra-cranial carotid and vertebral arteries. THIS IS AN ELECTRONICALLY VERIFIED FINAL REPORT 04/08/2025 4:57 PM - Electronically signed by Skip Roldan M.D. T: Report ID: [id number] Reading Location: [place] [address] PROCEDURES Final Resu lt * ECG 12 lead (04/08/2025 2:26 PM CDT) Ventricular Rate EKG/Min 92 BPM [facility] Atrial Rate 92 BPM [facility] MO-Interval (MSEC) 180 ms [facility] QRS-Interval (MSEC) 80 ms [facility] QT-Interval (MSEC) 350 ms [facility] QTc 432 ms [facility] P [place] 39 degrees [facility] R [place] -13 degrees [facility] T [place] 45 degrees [facility] Diagnosis Normal sinus rhythm Normal ECG No previous ECGs available Confirmed by TAWNYA BROOKS M.D. ([id number]) on 04/08/2025 8:35:53 PM [facility] 04/08/2025 2:26 PM CDT 04/08/2025 8:35 PM CDT Elsi JARQUIN ECG ORDERABLES Final Result Performing Organization Address [facility] de Phone Number [facility] * (ABNORMAL) Urinalysis reflex to microscopic and culture Urine (04/08/2025 2:20 PM CDT) Color, ur Yellow Yellow Clarity, ur Clear Clear [facility] Specific gravity, ur 1.013 1.003 - 1.030 [facility] pH, urine 6.5 [facility] Comment: Interpretive Data U rine pH is affected by diet, medications, systemic acid-base disturbances, and renal tubular function. pH may affect urinary stone formation. For example, urine pH below 6.0 may help reduce the tendency for calcium phosphate stones and pH greater than 6.0 may reduce the tendency for uric acid stone formation. Source: [facility] Current Interpretive Data was last revised on 2017 Protein, ur ql Negative Negative [facility] Glucose, ur ql 4+(A) Negative [facility] Ketones, ur Negative Negative [facility] Bilirubin, ur Negative Negative [facility] Blood, ur Negative Negative [facility] Urobilinogen, ur <2.0 <2.0 mg/dL [facility] Nitrite, ur Negative Negative [facility] Leukocyte esterase, ur Negative Negative [facility] UA reflex comment Reflex conditions for microscopic UA and culture not met. CARLOS Urine 04/08/2025 2:20 PM CDT 04/08/2025 2:27 PM CDT us Elsi JARQUIN LAB MICROBIOLOGY - GENERAL O RDERABLES Final Result Performing Organization Address City/[facility]/ZIP Co de Phone Number [facility] [address] [facility] [place] [address] * Troponin T high-sensitivity series (baseline, 2hr, 4hr, 6hr) (04/08/2025 2:18 PM CDT) Trop T hs 11 <=22 ng/L Comment: Interpretive Data For further hscTnT resources including the diagnostic algorithm and an aid in interpretation, copy and paste this link: https://nrl.testcatalog.org/show/hsTrop Current Interpretive Data last revised 2020. Blood 04/08/2025 2:18 PM CDT 04/08/2025 2:27 PM CDT us Elsi JARQUIN LAB BLOOD ORDERABLES Final R esult Performing Organization Address [facility] Co de Phone Number BRITANY[address] [place], [place] [id number] * (ABNORMAL) Sepsis Lactate w/ Reflex (04/08/2025 2:18 PM CDT) Pathologist [facility] Sepsis Lactate 2.2(H) 0.7 - 2.0 mmol/L Blood 04/08/2025 2:18 PM CDT 04/08/2025 2:27 PM CDT Elsi JARQUIN LAB BLOOD ORDERABLES Final R esult Performing Organization Address [facility] Co de Phone Number BRIT[address] [address] * eGFR (04/08/2025 2:18 PM CDT) Pathologist [facility] eGFR 82 >=60 mL/min/1. 73 m2 Comment: Interpretive Data Reference Interval Normal >/= 90 mL/min/1.73m2 Mildly decreased* 60 - 89 mL/min/1.73m2 Mildly to moderately decreased 45 - 59 mL/min/1.73m2 Moderately to severely decreased 30 - 44 mL/min/1.73m2 Severely decreased 15 - 29 mL/min/1.73m2 Kidney Failure < 15 mL/min/1.73m2 *Relative to young adult level Estimated glomerular filtration rate is determined by the 2020 CKD-EPI equation recommended by the National Kidney Foundation (A Unifying Approach to GFR Estimation: Recommendations of the NKF-ASK Task Force on Reassessing the Inclusion of Race in Diagnosing Kidney Disease, JASN 2020). The CKD-EPI equation should not be used for patients with unstable renal function and has not been validated in children and those over 70. Current interpretive data was last reviewed 2021. Blood 04/08/2025 2:18 PM CDT 04/08/2025 2:27 PM CDT Elsi JARQUIN LAB BLOOD ORDERABLES Final R esult [facility] [address] [facility] Department of Laboratories [place], [place] [id number] * Differential, auto (04/08/2025 2:18 PM CDT) Pathologist [facility] Neutrophil abs 5.32 1.50 - 6.50 K/cumm Imm gran abs 0.02 0.00 - 0.10 K/cumm [facility] Lymphocyte abs 2.68 0.80 - 3.30 K/cumm [facility] Monocyte abs 0.60 0.20 - 0.80 K/cumm [facility] Eosinophil abs 0.14 0.00 - 0.50 K/cumm [facility] Basophil abs 0.05 0.00 - 0.10 K/cumm [facility] Neutrophil pct 60.4 % [facility] Comment: Interpretive Data Percent cell count reference ranges are not reported, since discordance with absolute values may lead to misinterpretation of CBC data. Current Interpretive Data was last revised on 2017. Imm gran pct 0.2 % [facility] Comment: Interpretive Data Percent cell count reference ranges are not reported, since discordance with absolute values may lead to misinterpretation of CBC data. Current Interpretive Data was last revised on 2017. Lymphocyte pct 30.4 % [facility] Comment: Interpretive Data Percent cell count reference ranges are not reported, since discordance with absolute values may lead to misinterpretation of CBC data. Current Interpretive Data was last revised on 2017. Monocyte pct 6.8 % [facility] Comment: Interpretive Data Percent cell count reference ranges are not reported, since discordance with absolute values may lead to misinterpretation of CBC data. Current Interpretive Data was last revised on 2017. Eosinophil pct 1.6 % [facility] Comment: Interpretive Data Percent cell count reference ranges are not reported, since discordance with absolute values may lead to misinterpretation of CBC data. Current Interpretive Data was last revised on 2017. Basophil pct 0.6 % [facility] Comment: Interpretive Data Percent cell count reference ranges are not reported, since discordance with absolute values may lead to misinterpretation of CBC data. Current Interpretive Data was last revised on 2017. Blood 04/08/2025 2:18 PM CDT 04/08/2025 2:27 PM CDT Elsi JARQUIN LAB BLOOD ORDERABLES Final R esult [place] [address] [facility] [place] [address] * CBC with auto differential (04/08/2025 2:18 PM CDT) WBC 8.81 3.80 - 9.90 K/cumm Hgb 15.9 13.0 - 17.5 g/dL [facility] Hct 46.4 38.9 - 50.3 % [facility] Plt 315 150 - 400 K/cumm [facility] MPV 10.7 9.1 - 12.3 fL [facility] RBC 5.12 4.30 - 5.80 M/cumm [facility] MCV 90.6 81.3 - 96.4 fL [facility] MCH 31.1 27.1 - 33.3 pg [facility] MCHC 34.3 32.3 - 35.7 g/dL [facility] RDW CV 12.7 11.1 - 14.9 % [facility] RDW SD 42.2 35.7 - 48.1 fL [facility] NRBC abs 0.00 0.00 - 0.01 K/cumm [facility] Blood 04/08/2025 2:18 PM CDT 04/08/2025 2:27 PM CDT Elsi JARQUIN LAB BLOOD ORDERABLES Final R esult Performing Organization Address [facility] Co de Phone Number CARLOS [address] [place] [address] * aPTT (04/08/2025 2:18 PM CDT) aPTT 26 22 - 37 sec Comment: Interpretive data aPTT test has not been evaluated for monitoring heparin therapy. The anti-Xa is the preferred test. Current interpretive data was last revised on 2019. Blood 04/08/2025 2:18 PM CDT 04/08/2025 2:27 PM CDT Elsi JARQUIN LAB BLOOD ORDERABLES Final R formerly [facility] Performing Organization Address [facility] de Phone Number CARLOS [address] [address] * Protime-INR (04/08/2025 2:18 PM CDT) PT 12.50 12.00 - 14.60 sec INR 0.92 0.90 - 1.20 CARLOS Comment: Interpretive data Oral anticoagulant therapeutic ranges: Venous thromboembolism prophylaxis or treatment: 2.0-3.0 CARDIOLOGY Standard range: 2.0-3.0 High-intensity range: 2.5-3.5 Refer to indication-specific guidelines for appropriate target ranges for prosthetic heart valve replacement. Current interpretive data was last revised on 2019. Blood 04/08/2025 2:18 PM CDT 04/08/2025 2:27 PM CDT Elsi JARQUIN LAB BLOOD ORDERABLES Final R esult Performing Organization Address [facility] Co de Phone Number CARLOS [address] [place] [address] * Magnesium (04/08/2025 2:18 PM CDT) Magnesium 1.8 1.4 - 2.5 mg/dL Blood 04/08/2025 2:18 PM CDT 04/08/2025 2:27 PM CDT Elsi JARQUIN LAB BLOOD ORDERABLES Final R esult [facility] [address] [facility] [place] [address] * Comprehensive metabolic panel (04/08/2025 2:18 PM CDT) Pathologist [facility] [place] Sodium 141 135 - 145 mmol/L Potassium, pl 3.3 3.3 - 4.9 mmol/L [facility] Chloride 103 97 - 110 mmol/L [facility] CO2 24 22 - 32 mmol/L [facility] Anion gap 14 2 - 15 mmol/L [facility] BUN 14 6 - 25 mg/dL [facility] Creatinine 1.13 0.80 - 1.30 mg/dL [facility] Glucose 136 70 - 199 mg/dL [facility] Comment: Interpretive Data Fasting glucose >/= 126 mg/dl is diagnostic for diabetes. Fasting is defined as no caloric intake for at least 8 hours. Fasting glucose between 100 mg/dl to 125 mg/dl is diagnostic of prediabetes. In a patient with classic symptoms of hyperglycemia or hyperglycemic crisis, a random glucose >/= 200 mg/dl is diagnostic for diabetes. In the absence of unequivocal hyperglycemia, results should be confirmed by repeat testing. The classification and Diagnosis of Diabetes Diabetes Care 2021; 46: S19-S40. Current interpretive data was last revised 2022. Calcium 9.9 8.5 - 10.3 mg/dL [facility] Bilirubin, total 0.5 0.1 - 1.2 mg/dL [facility] Protein, pl 7.1 6.5 - 8.5 g/dL [facility] Albumin 4.3 3.5 - 5.0 g/dL [facility] Alk phos 86 40 - 130 Units/L [facility] ALT 20 7 - 55 Units/L [facility] AST 23 10 - 50 Units/L [facility] Blood 04/08/2025 2:18 PM CDT 04/08/2025 2:27 PM CDT us Elsi JARQUIN LAB BLOOD ORDERABLES Final R esult [facility] [address] [facility] [place] [address] from Last 3 Months Insurance [employer] OOS [employer] Advance Directives For more information, please contact: [phone] * Full Code (Latest Code Status on File) Date Activated Date Inactivated Comments 04/08/2025 9:15 PM 04/09/2025 6:09 PM Care Teams [employer] Relationship Specialty Start Date End Date Ruben Mobley MD [address] [place] [address] PCP - General Family Medicine 11/16/24
[2025-06-04 08:12] VITALS: BP 128/84; PULSE 86; RESP 16; TEMP 36; O2SAT 98
[2025-06-04] MEDS: LACTATED RINGERS 1,000 ML 150 ML IV CONT (08:23)
--- NOTE | 2025-06-04 08:34 | P.PNAN_ITS ---
Anes - Initial Pre Proc Eval Procedure: Operation Date: 06/04/25 09:30 Proposed Procedures p Screening Colonoscopy - Desmond Ventura MD Date/Time: 06/04/25 08:34 Surgeon: Desmond Ventura MD Pre Op Diagnosis: Screening Patient Data Age: 44 Gender: M Height: 1.78 m Weight: 107.1 kg Last Vital Signs Temp 36.0 C L 06/04/25 08:12 Pulse 86 06/04/25 08:12 Resp 16 06/04/25 08:12 BP 128/84 06/04/25 08:12 Pulse Ox 98 06/04/25 08:12 O2 Del Method Room Air 06/04/25 08:12 Allergies Allergy/AdvReac Type Severity Reaction Status Date / Time oseltamivir (From Tamiflu) AdvReac Unknown Unknown Verified 06/04/25 08:10 Home Medications ?Medication ?Instructions ?Recorded ?Confirmed ?Type hydroxyzine HCl 25 mg tablet 25 mg PO TID PRN anxiety #20 tabs 04/25/24 06/04/25 Rx aspirin 81 mg tablet 81 mg PO DAILY 05/22/2511/23 History atorvastatin 40 mg tablet 80 mg PO DAILY 05/22/2511/23 History buspirone 5 mg tablet 5 mg PO TID 05/22/25 5 History diltiazem HCl 300 mg capsule,24 128 mg PO BID 05/22/25 06/04/25 History hr,extended release empagliflozin 25 mg tablet 25 mg PO DAILY 05/22/2511/23 History (Jardiance) gabapentin 100 mg capsule 100 mg PO BID 05/22/2506/04 History lisinopril 20 2 tablet PO DAILY 05/22/25 1 08/04/24 History mg-hydrochlorothiazide 12.5 mg tablet metformin 1,000 mg tablet 1,000 mg PO BID 05/22/2511/23 History Laboratory Tests 06/04/25 08:20 POC Capillary Glucose 115 H mg/dl (65-105) Patient hx anesthesia problems: none Family hx anesthesia problems: none Results Review: All pre-operative results and documents have been reviewed as part of the pre- operative evaluation. [facility] Social History Social History Smoking status: Never smoker Substance use type: does not use Living arrangements: with family Spiritual care concerns: No Anes - Eval Final PreProcedure Day of Procedure 06/04/25 08:34 Patient weight: obese Heart: regular rate and rhythm Lungs: clear to auscultation Airway: Mallampati scale class II Neurological: alert and oriented Last oral intake: >/= 8 hours ASA classification: III Emergent: no Anesthetic plan: proceed Anesthesia type and monitoring: general GIVS and standard monitoring Results Review: All pre-operative results and documents have been reviewed as part of the pre- operative evaluation. Informed Consent: The patient's anesthetic plan and its attendant risks and benefits were discussed with the patient/family/POA. Questions were solicited and answers provided to the satisfaction of the patient/family/POA.
--- NOTE | 2025-06-04 09:16 | PM.HPGS ---
History of Present Illness History of Present Illness Consent: Risks, benefits, and alternatives have been discussed and questions answered. Patient agrees to proceed with procedure. Chief complaint: Screening Narrative: Khoi Goldberg is a 44 year old male here for screening colonoscopy Review of Systems Review of Systems: All systems reviewed & are unremarkable except as noted in HPI and below PMFSH Past Medical History Medical History (Updated 06/04/25 @ 09:17 by Desmond Ventura MD) Colon cancer screening Social History Social History Smoking status: Never smoker Substance use type: does not use Living arrangements: with family Spiritual care concerns: No Meds Home Medications and Allergies Home Medications ?Medication ?Instructions ?Recorded ?Confirmed ?Type hydroxyzine HCl 25 mg tablet 25 mg PO TID PRN anxiety #20 tabs 04/25/24 06/04/25 Rx aspirin 81 mg tablet 81 mg PO DAILY 05/22/25 06/04/25 History atorvastatin 40 mg tablet 80 mg PO DAILY 05/22/25 06/04/25 History buspirone 5 mg tablet 5 mg PO TID 05/22/25 06/04/25 History diltiazem HCl 300 mg capsule,24 128 mg PO BID 05/22/25 06/04/25 History hr,extended release empagliflozin 25 mg tablet 25 mg PO DAILY 05/22/25 06/04/25 History (Jardiance) gabapentin 100 mg capsule 100 mg PO BID 05/22/25 06/04/25 History lisinopril 20 2 tablet PO DAILY 05/22/25 06/04/25 History mg-hydrochlorothiazide 12.5 mg tablet metformin 1,000 mg tablet 1,000 mg PO BID 05/22/25 06/04/25 History Allergies Allergy/AdvReac Type Severity Reaction Status Date / Time oseltamivir (From Tamiflu) AdvReac Unknown Unknown Verified 06/04/25 08:10 Vital Signs Vital Signs - 24 hr 06/04/25 08:12 Temperature 96.8 F L Pulse Rate 86 Respiratory Rate 16 Blood Pressure 128/84 Pulse Oximetry 98 Oxygen Delivery Room Air Exam Const: General: comfortable and no acute distress HENMT: Face/Nose/Sinus: Normal nares present Eyes: General: appearance normal, both eyes and all related structures Neck: Neck: no JVD Resp: Auscultation: clear to auscultation bilaterally Cardio: Rate: regular rate Rhythm: regular rhythm GI: Inspection: non-distended GI Palp: Yes Soft to palpation Skin: General skin exam: normal color Extrem: General: normal to inspection Psych: Mental Status: mental status grossly normal Assessment and Plan Assessment and plan (1) Colon cancer screening: Code(s): Z12.11 - Encounter for screening for malignant neoplasm of colon Status: Acute Assessment and Plan: colonoscopy
--- NOTE | 2025-06-04 09:29 | S_PTH ---
PATIENT: Khoi Goldberg LOC: [facility]#:[id number] AGE/SX: 44/M ROOM: RE06/04/[address]: Desmond Ventura MD : 1980 BED: DIS: 06/04/2025 SPEC #: [id number] RECD: 06/04/25 09:49 STATUS: LJ REKajal #: [id number] CRISTINA: 06/04/25 09:[address]: Desmond Ventura DEPT: [facility] Surgical RECD BY: Kalyan Brenner Tissues: A - Colon Polypectomy Procedures: Hematoxylin and Eosin Stain Gross and Microscopic Level 4
[2025-06-04 09:32] VITALS: BP 101/73; PULSE 90; RESP 23; O2SAT 98
[2025-06-04 09:42] VITALS: BP 113/64; PULSE 75; RESP 29; O2SAT 98
[2025-06-04 09:52] VITALS: BP 114/76; PULSE 83; RESP 21; O2SAT 100
== END 2025-06-04 10:02 | disposition home or self-care (01) ==
PROVIDERS: Visit Provider Internal Medicine Gastroenterology
PROC: 0DJD8ZZ Inspection of Lower Intestinal Tract, Via Natural or Artificial Opening Endoscopic (ICD-10-PCS; CPT 45378; principal; 2025-06-04 09:30)
DX: Z12.11 Encounter for screening for malignant neoplasm of colon (principal); D12.5 Benign neoplasm of sigmoid colon; K57.30 Diverticulosis of large intestine without perforation or abscess without bleeding; E66.9 Obesity, unspecified; Z68.33 Body mass index [BMI] 33.0-33.9, adult; Z79.82 Long term (current) use of aspirin; Z79.84 Long term (current) use of oral hypoglycemic drugs
CPT/HCPCS: 45385; 82948; 88305; J2003; J2704; J7120